=== PATIENT | male | born 1980 | race Caucasian/White ===

== ENCOUNTER 2018-03-18 16:16 | Observation (INO) ==
[2018-03-18 17:04] LABS: Baso # (Auto) 0.1 th/mm3 (0.0-0.2); Baso % (Auto) 0.9 % (0.0-2.0); Eos # (Auto) 0.6 th/mm3 (0.0-0.4); Eos % (Auto) 9.1 % (0.0-4.0); Hematocrit 43.3 % (39.0-51.0); Lymph # (Auto) 2.4 th/mm3 (1.0-4.8); Lymph % (Auto) 34.7 % (9.0-44.0); Mean Corpuscular HGB Conc 34.6 % (32.0-36.0); Mean Corpuscular Hemoglobin 33.6 pg (27.0-34.0); Mean Corpuscular Volume 97.1 fL (80.0-100.0); Mean Platelet Volume 10.6 fL (7.0-11.0); Mono # (Auto) 0.5 th/mm3 (0.0-0.9); Mono % (Auto) 6.9 % (0.0-8.0); Neut # (Auto) 3.3 th/mm3 (1.8-7.7); Neut % (Auto) 48.4 % (16.0-70.0); Platelet Count 192 th/mm3 (150-450); Red Blood Count 4.46 mil/mm3 (4.50-5.90); White Blood Count 6.9 th/mm3 (4.0-11.0)
--- NOTE | 2018-03-18 17:07 | ED ---
HPI General Chief Complaint: Extremity Injury, Lower Stated Complaint: Leg Injury Time Seen by Provider: 03/18/18 16:31 Source: patient Mode of arrival: EMS Limitations: no limitations History of Present Illness HPI Narrative: 37y male from [place] presents to the ED for evaluation of RLE pain after an injury that occurred just prior to arrival. Evac states he was jumping up to catch a football, landed, and had an immediate deformity with pain of the lower extremity. Patient's pain is 10/10 prior to morphine and decreased to 8/10 with a total of 10mg Morphine, administered by EVAC prior to arrival. Pt says the pain is localized to the lower mid leach without radiation of pain. No numbness or tingling. Patient denies chronic medical issues or medication use. Denies illicit drug use. Related Data Home Medications Medication Instructions Recorded Confirmed No Known Home Medications 03/18/18 03/18/18 Allergies Allergy/AdvReac Type Severity Reaction Status Date / Time No Known Allergies Allergy Unverified 03/18/18 16:31 Review of Systems Except as stated in HPI: all other systems reviewed are negative PMFSH Social History Social History Substance History: No History of Abuse Second Hand Smoke Exposure: Yes Smoking Status: Current every day smoker Tobacco Type: Cigarettes How Often Do You Have a Drink Containing Alcohol: 4 or more times a week Recent Travel in [facility] within the Last 8 Weeks: No Recent Out of Country Travel within the Last 8 Weeks: No Immunization History Tetanus Immunization: Unsure Hx Influenza Vaccine This Season: No Exam Narrative Exam Narrative: GENERAL: Well-developed, well-nourished in mild distress SKIN: Focused skin assessment warm/dry. HEAD: Atraumatic. Normocephalic. EYES: Pupils equal and round. No scleral icterus. No injection or drainage. ENT: No nasal bleeding or discharge. Mucous membranes pink and moist. NECK: Trachea midline. No JVD. CARDIOVASCULAR: Regular rate and rhythm. No murmur appreciated. RESPIRATORY: No accessory muscle use. Clear to auscultation. Breath sounds equal bilaterally. GASTROINTESTINAL: Abdomen soft, non-tender, nondistended. Hepatic and splenic margins not palpable. Hip/pelvis stable without TTP, B/L thighs without TTP, No TTP to proximal tibia. TTP to lower mid tibia, skin intact. Pt moves toes and has full sensation of leg, dorsalis pedic pulse bounding NEUROLOGICAL: Awake and alert. No obvious cranial nerve deficits. Motor grossly within normal limits. Normal speech. PSYCHIATRIC: Appropriate mood and affect; insight and judgment normal. Course Initial Documented Vital Signs Temperature 98.4 F 03/18/18 16:23 Pulse Rate 74 03/18/18 16:23 Respiratory Rate 18 03/18/18 16:23 Blood Pressure 152/87 H 03/18/18 16:23 Pulse Oximetry 99 03/18/18 16:23 Last Documented Vital Signs Temperature 98.8 F 03/18/18 22:18 Pulse Rate 71 03/18/18 22:18 Respiratory Rate 17 03/18/18 22:18 Blood Pressure 126/72 03/18/18 22:18 Pulse Oximetry 97 03/18/18 22:18 Medical Decision Making MDM Narrative Medical decision making narrative: 37y male presents to the ED with a lower extremity injury via EVAC. Labs and imaging ordered. Xray consistent with a tib/fib fracture. He is neurovascularly intact. I offered more pain control but pt declined, stating he would rather avoid excessive pain medications. I spoke with Dr. Harris who recommended posterior leg splint, cold machine, and NPO after midnight with plan for surgery tomorrow. Admitted to Dr. Harris. Placed order for pain medication PRN. Differential Diagnosis Differential Diagnosis: Leg fracture, contusion, ankle sprain, ankle fracture Lab Data Result diagrams: 03/18/18 16:30 03/18/18 16:30 Lab Results 03/18/18 03/18/18 03/18/18 Range/Units 16:30 16:30 16:30 WBC 6.9 (4.0-11.0) th/mm3 RBC 4.46 L (4.50-5.90) mil/mm3 Hgb 15.0 (13.0-17.0) gm/dL Hct 43.3 (39.0-51.0) % MCV 97.1 (80.0-100.0) fL MCH 33.6 (27.0-34.0) pg MCHC 34.6 (32.0-36.0) % RDW 13.0 (11.6-17.2) % Plt Count 192 (150-450) th/mm3 MPV 10.6 (7.0-11.0) fL Neut % (Auto) 48.4 (16.0-70.0) % Lymph % (Auto) 34.7 (9.0-44.0) % [place] % (Auto) 6.9 (0.0-8.0) % Eos % (Auto) 9.1 H (0.0-4.0) % Baso % (Auto) 0.9 (0.0-2.0) % Neut # (Auto) 3.3 (1.8-7.7) th/mm3 Lymph # (Auto) 2.4 (1.0-4.8) th/mm3 [place] # (Auto) 0.5 (0.0-0.9) th/mm3 Eos # (Auto) 0.6 H (0.0-0.4) th/mm3 Baso # (Auto) 0.1 (0.0-0.2) th/mm3 WBC Differential . Differential Comment Auto diff final PT 10.0 (9.8-11.6) sec INR 1.0 Ratio APTT 23.1 L (24.3-30.1) sec Sodium 140 (136-145) meq/L Potassium 3.7 (3.5-5.1) meq/L Chloride 106 (98-107) meq/L Carbon Dioxide 27.2 (21.0-32.0) meq/L Anion Gap 7 (5-15) meq/L BUN 12 (7-18) mg/dL Creatinine 1.07 (0.60-1.30) mg/dL Estimated GFR 77 L (>89) mL/min Random Glucose 94 (74-106) mg/dL Calcium 8.6 (8.5-10.1) mg/dL Total Bilirubin 0.4 (0.2-1.0) mg/dL AST 22 (15-37) U/L ALT 40 (12-78) U/L Alkaline Phosphatase 55 (45-117) U/L Total Protein 7.3 (6.4-8.2) g/dL Albumin 3.6 (3.4-5.0) g/dL Imaging Data Radiologist's impression: Ankle X-Ray 03/18/18 16:31 CONCLUSION: Distal tibia and fibular fractures. Tibia/Fibula X-Ray 03/18/18 16:31 CONCLUSION: Tibia and fibular fractures are noted. Discharge Plan Discharge Disposition Patient Disposition: 30 Still Patient Discharge Condition Condition: Stable Discharge Details Diagnosis: Fracture tibia/fibula Physicians Team ED Provider: Sean Landry ED Midlevel Provider: Kelly Liu Primary Care Provider: Primary Care Ruth Smalls Attending Provider: Ernie Harris Status ED Status: Left Department Discharge Information Discharge Date/Time: 03/18/18 22:05
--- NOTE | 2018-03-18 17:16 | XR ---
EXAM DATE: 03/18/2018 5:12 PM EDT AGE/SEX: 37 years / Male INDICATIONS: Right leg pain after falling while playing football today. CLINICAL DATA: This is the patient's initial encounter. Patient reports that signs and symptoms have been present for 1 day and indicates a pain score of 10/10. MEDICAL/SURGICAL HISTORY: . Smoker. None. COMPARISON: [facility] [place], TIBIA FIBULA RIGHT 2V, 03/18/2018. . FINDINGS: There is an oblique laterally displaced fracture of the distal tibial metaphysis identified, with com minuted fragments seen. In addition there is an oblique mildly displaced fracture of the distal fibul ar diaphysis. Bone density is normal. Ankle mortise is approximated. CONCLUSION: Distal tibia and fibular fractures. Electronically signed by: Yong Brown MD 03/18/2018 5:15 PM EDT
--- NOTE | 2018-03-18 17:17 | XR ---
EXAM DATE: 03/18/2018 5:13 PM EDT AGE/SEX: 37 years / Male INDICATIONS: Entire right leg pain after falling while playing football today. CLINICAL DATA: This is the patient's initial encounter. Patient reports that signs and symptoms have been present for 1 day and indicates a pain score of 10/10. MEDICAL/SURGICAL HISTORY: . Smoker. None. COMPARISON: [facility], ANKLE COMPLETE RIGHT MIN 3V, 03/18/2018. . FINDINGS: There is an oblique mildly displaced fracture of the proximal fibular metaphysis with anterior displa cement of the distal fibular fragment, as well as an oblique comminuted mildly displaced fracture of the distal fibular diaphysis, and a displaced distal tibial metaphyseal fracture, comminuted. CONCLUSION: Tibia and fibular fractures are noted. Electronically signed by: Yong Brown MD 03/18/2018 5:15 PM EDT
[2018-03-18 17:21] LABS: Albumin 3.6 g/dL (3.4-5.0); Anion Gap 7 meq/L (5-15); Aspartate Aminotransferase 22 U/L (15-37); Blood Urea Nitrogen 12 mg/dL (7-18); Calcium 8.6 mg/dL (8.5-10.1); Carbon Dioxide 27.2 meq/L (21.0-32.0); Chloride 106 meq/L (98-107); Glomerular Filtration Rate 77 mL/min (>89); Glucose,Random 94 mg/dL (74-106); Potassium 3.7 meq/L (3.5-5.1); Sodium 140 meq/L (136-145)
[2018-03-18 17:22] LABS: Alanine Aminotransferase 40 U/L (12-78)
[2018-03-18 17:24] LABS: Alkaline Phosphatase 55 U/L (45-117); Total Protein 7.3 g/dL (6.4-8.2)
[2018-03-18] MEDS ORDERED: Morphine Sulfate Inj 8 MG/ML Vial IV.PUSH ONE ×2 (17:43→18:13)
[2018-03-18] MEDS ORDERED: Morphine Sulfate Inj 8 MG/ML Vial ONE (17:47)
[2018-03-18 17:51] LABS: Activated Partial Thrombo Time 23.1 sec (24.3-30.1)
[2018-03-18] MEDS ORDERED: Morphine Inj 4 MG/ML Vial IV.PUSH ONE (19:00)
[2018-03-18] MEDS ORDERED: Morphine Inj 4 MG/ML Vial IV.PUSH PRN (20:48)
--- NOTE | 2018-03-19 08:04 | P.PNOP ---
Subjective Interval history: Injury while playing football on the beach. Patient is visiting from [facility]. No other associated injury <Josh Montemayor - Last Filed: 03/19/18 08:00> Physical Exam Vital signs: Vital Signs 03/18/18 16:23 03/18/18 16:26 03/18/18 18:00 Temperature 98.4 F 98.4 F Pulse Rate 74 74 Respiratory Rate 18 16 16 Blood Pressure 152/87 H 152/87 H Pulse Oximetry 99 100 03/18/18 22:18 03/19/18 04:00 Temperature 98.8 F 97.8 F Pulse Rate 71 64 Respiratory Rate 17 16 Blood Pressure 126/72 133/78 Pulse Oximetry 97 98 Intake & Output 03/18/18 03/19/18 03/19/18 18:59 06:59 18:59 Weight 230 kg 104.326 kg Other: Weight On Admission 104.326 kg Narrative: Right lower extremity: No pain with hip range of motion. Tenderness over proximal fibula. Short leg splint with posterior and stirrup intact with ice cuff. Intact sensation in all toes. Distally is able to move his toes appropriately. <Josh Montemayor - Last Filed: 03/19/18 08:00> Vital signs: Vital Signs 03/18/18 16:23 03/18/18 16:26 03/18/18 18:00 Temperature 98.4 F 98.4 F Pulse Rate 74 74 Respiratory Rate 18 16 16 Blood Pressure 152/87 H 152/87 H Pulse Oximetry 99 100 03/18/18 22:18 03/19/18 04:00 Temperature 98.8 F 97.8 F Pulse Rate 71 64 Respiratory Rate 17 16 Blood Pressure 126/72 133/78 Pulse Oximetry 97 98 Intake & Output 03/18/18 03/19/18 03/19/18 18:59 06:59 18:59 Weight 230 kg 104.326 kg Other: Weight On Admission 104.326 kg <Joce Owens - Last Filed: 03/19/18 09:40> Results - Labs CBC & Chem 7: 03/18/18 16:30 03/18/18 16:30 Laboratory Results - last 24 hr 03/18/18 03/18/18 03/18/18 16:30 16:30 16:30 WBC 6.9 RBC 4.46 L Hgb 15.0 Hct 43.3 MCV 97.1 MCH 33.6 MCHC 34.6 RDW 13.0 Plt Count 192 MPV 10.6 Neut % (Auto) 48.4 Lymph % (Auto) 34.7 [place] % (Auto) 6.9 Eos % (Auto) 9.1 H Baso % (Auto) 0.9 Neut # (Auto) 3.3 Lymph # (Auto) 2.4 [place] # (Auto) 0.5 Eos # (Auto) 0.6 H Baso # (Auto) 0.1 WBC Differential . Differential Comment Auto diff final PT 10.0 INR 1.0 APTT 23.1 L Sodium 140 Potassium 3.7 Chloride 106 Carbon Dioxide 27.2 Anion Gap 7 BUN 12 Creatinine 1.07 Estimated GFR 77 L Random Glucose 94 Calcium 8.6 Total Bilirubin 0.4 AST 22 ALT 40 Alkaline Phosphatase 55 Total Protein 7.3 Albumin 3.6 - Imaging Impressions Ankle X-Ray 03/18/18 16:31 CONCLUSION: Distal tibia and fibular fractures. Tibia/Fibula X-Ray 03/18/18 16:31 CONCLUSION: Tibia and fibular fractures are noted. <Josh Montemayor - Last Filed: 03/19/18 08:00> - Labs CBC & Chem 7: 03/18/18 16:30 03/18/18 16:30 Laboratory Results - last 24 hr 03/18/18 03/18/18 03/18/18 16:30 16:30 16:30 WBC 6.9 RBC 4.46 L Hgb 15.0 Hct 43.3 MCV 97.1 MCH 33.6 MCHC 34.6 RDW 13.0 Plt Count 192 MPV 10.6 Neut % (Auto) 48.4 Lymph % (Auto) 34.7 [place] % (Auto) 6.9 Eos % (Auto) 9.1 H Baso % (Auto) 0.9 Neut # (Auto) 3.3 Lymph # (Auto) 2.4 [place] # (Auto) 0.5 Eos # (Auto) 0.6 H Baso # (Auto) 0.1 WBC Differential . Differential Comment Auto diff final PT 10.0 INR 1.0 APTT 23.1 L Sodium 140 Potassium 3.7 Chloride 106 Carbon Dioxide 27.2 Anion Gap 7 BUN 12 Creatinine 1.07 Estimated GFR 77 L Random Glucose 94 Calcium 8.6 Total Bilirubin 0.4 AST 22 ALT 40 Alkaline Phosphatase 55 Total Protein 7.3 Albumin 3.6 - Imaging Impressions Ankle X-Ray 03/18/18 16:31 CONCLUSION: Distal tibia and fibular fractures. Tibia/Fibula X-Ray 03/18/18 16:31 CONCLUSION: Tibia and fibular fractures are noted. <Joce Owens - Last Filed: 03/19/18 09:40> Assessment and Plan - Assessment and Plan Right distal tibia and fibula fractures N.p.o. Surgery this morning for open reduction internal fixation versus external fixation. Swelling will determine course of action in surgery. Sign consents <Josh Montemayor - Last Filed: 03/19/18 08:00> - Assessment and Plan [employer] [employer] Prescription Drug Monitoring Database has been queried and verified prior to prescribing the controlled substance. Acute pain exception. This patient has normal, predicted, physiological, and time limited response to an adverse mechanical stimulus associated with surgery, trauma, or acute illness as described in my notes. There is a lack of alternative treatment options other than to include the prescribed narcotic treatment for this condition. <Joce Owens - Last Filed: 03/19/18 09:40>
[2018-03-19] MEDS ORDERED: Post-op Orders (for Pharmacy) OTHER STA (09:47)
[2018-03-19] MEDS ORDERED: Morphine Inj 4 MG/ML Vial IV.PUSH PRN (09:47)
--- NOTE | 2018-03-19 09:54 | P.OP ---
- Preoperative Diagnosis (1) Closed fracture of right distal tibia (2) Fracture tibia/fibula Date of procedure: 03/19/18 Procedure: Open reduction internal fixation right distal tibia fracture Anesthesia: GETA Surgeon: Waqar Rankin MD Authorization Specialist: ELDA Oleary PA-C The surgical procedure was assisted by my physician speech assistant. My P.A. presence was necessary throughout this case for the manipulation and positioning of the surgical extremity. My P.A. was assisting me throughout the duration of this procedure. The skill set of a physician speech assistant was medically necessary to complete this procedure. During the surgical case the surgical garment assembler was working at the back table and the physician speech assistant was directly assisting me. Operation and Findings: Implants used: Biomet Plan of activity: Nonweightbearing right leg Details of procedure: This patient was seen and evaluated preoperatively. He sustained fractures of the right distal tibia and fibula while playing at the beach with his family. He is here on vacation from [place]. Informed consent was obtained for open reduction and internal fixation of distal tibia fracture. Soft tissue was evaluated preoperatively and found to be suitable for surgery. Patient was brought to the operating placed on operating room table. Patient was given IV sedation and general anesthesia. Timeout procedure was performed, and IV antibiotics were given prior to procedure. The operative leg was now prepped with alcohol followed by Hibiclens and draped usual sterile fashion. A 3 inch incision was now made over the medial aspect of the ankle. Saphenous vein was protected. A full thickness flap was now elevated. The distal medial tibia was now exposed. Attention was now turned towards reduction. The metaphyseal fragments were reduced first. Traction was applied and fracture fragments were manipulated. There were multiple metaphyseal fragments. These were manipulated in excellent reduction was achieved. Fracture tenaculums were used to reduce fractures. Multiple K wires were used to hold provisional fixation. Fluoroscopy confirmed excellent alignment of fractures. A Biomet medial distal tibial plate was selected. Plate was placed percutaneously along the medial aspect of the distal tibia. Plate was provisionally held to bone with K wires. 2.7 cortical screws and 3.5 cortical screws were used to compress plate to bone. Multiple screws were placed into the shaft. Multiple 2.7 locking screws were placed into the distal segment. All screws were predrilled and premeasured for appropriate lengths. Final fluoroscopy revealed well aligned fracture with well-placed hardware. The wound was now thoroughly irrigated. Subcutaneous tissues closed with 3-0 Vicryl and skin was closed with 3-0 nylon. Sterile dressings were applied with Xeroform 4 x 4's soft roll and a well-padded splint.. Needle and sponge counts were correct. Patient was transferred to recovery room in stable condition.
[2018-03-19] MEDS: Ketorolac Inj 30 MG/ML (IVP) Vial IV.PUSH SCH ×2 (10:15→17:03)
[2018-03-19] MEDS ORDERED: fentaNYL Citrate Inj 100 MCG/2 ML Ampul ONE (10:25)
--- NOTE | 2018-03-19 10:32 | MB ---
cc: Waqar Thomas MD DATE: 03/19/2018 REASON FOR ADMISSION: Right distal tibia and fibula fractures. HISTORY OF PRESENT ILLNESS: Milo is a 37-year-old male who is visiting in [place] from [place]. He and his family have been staying in a condo in [place] but came up to [place] to visit friends. He was at the beach playing. He jumped to catch a football. He landed awkwardly on his right leg. He had immediate right leg pain and deformity. He denies dizziness, syncope or loss of consciousness. He presented to the Emergency Room, where x-rays revealed displaced right distal tibia and fibula shaft fractures. Pain is worse with movement and is improved with rest. ALLERGIES: NO KNOWN DRUG ALLERGIES. PAST MEDICAL HISTORY: None. MEDICATIONS: None. FAMILY HISTORY: Noncontributory. He denies any familial medical problems. SOCIAL HISTORY: The patient denies drug use. He drinks alcohol approximately 4 times a week. He does smoke cigarettes. REVIEW OF SYSTEMS: The patient denies fevers, chills, weight loss, headache, visual changes, hearing loss, chest pain, palpitations, shortness of breath, nausea or vomiting, urinary changes, diarrhea, bowel changes, neck pain, back pain, skin rashes, weakness or numbness of extremities, anxiety or depression. He complains of right leg pain. LABORATORY DATA: The patient has a white blood cell count of 6.9, hematocrit of 43.3, platelet count of 192. INR is 1.0. Potassium is 3.7. PHYSICAL EXAMINATION: GENERAL: The patient is a well-developed, well-nourished, 37-year-old male, who is in no acute distress. He is awake and alert. He is alert and oriented x 3. VITAL SIGNS: Temperature 97.8, pulse 64, respirations 16, blood pressure 133/78, O2 saturations 98% on room air. HEENT: Head: The patient is normocephalic. Pupils are equal. NECK: Soft, nontender. The trachea is in the midline. ABDOMEN: Soft, nontender, and nondistended. EXTREMITIES: Examination of bilateral upper extremities reveals no pain with shoulder, elbow or wrist motion. He has intact sensation in all fingers. He has good capillary refill fingers. Skin is intact. Radial pulses are palpable. Examination of left leg reveals no pain with hip, knee or ankle motion. Skin is intact. Dorsalis pedis pulse is palpable. Sensation is intact. Examination of right leg reveals no tenderness around his hip or knee. Calf and thigh compartments are soft. He has mild swelling of the ankle. He has pain with any ankle motion. Skin is intact. Dorsalis pedis pulse is palpable. Sensation is intact to the right foot. IMAGING STUDIES: X-rays of the right ankle were reviewed. X-rays reveal displaced fractures of the right distal tibia and fibula shaft. IMPRESSION: 1. Tobacco dependence. 2. Right distal tibia and fibula fractures. PLAN: Treatment options were discussed with the patient. At this point, I would recommend open reduction and internal fixation of right distal tibia fracture. Risk of surgery included bleeding, infection; injuries to arteries, nerves or blood vessels; nonunion, malunion, painful hardware, wound complications, as well as medical complications including blood clot, stroke, heart attack and . All questions were answered. I will plan on surgery today. If the patient does have a significant increase of swelling between now and surgery, he may need 2 surgeries. If swelling has increased, he may need temporary external fixation prior to definitive fixation with open reduction and internal fixation. Postoperatively, I will consult physical therapy. He will be placed on calcium and vitamin D. I also discussed with him the need to stop smoking. A mid-level provider in my office, nurse practitioner or PA, may see this patient on a follow-up basis and continue to implement the objective of this plan including: Starting or adjusting medications, injections of muscle, tendon, bursa or joints, cast application, orthotic or brace application, physical therapy, further radiographic studies including x-ray, MRI, CT, ultrasounds or bone scan, vascular studies, neurologic studies, or other specialist consultations, and proceeding with surgical management as appropriate. MD ALIYAH Costa/CYDNEY , 10:11 AM , 10:21 AM
[2018-03-19] MEDS ORDERED: *morphine SULFATE 10 MG/ML PERIprocedure ONLY ONE (10:50)
[2018-03-19] MEDS ORDERED: Ketorolac Inj 30 MG/ML (IVP) Vial IV.PUSH ONE (12:00)
[2018-03-19] MEDS ORDERED: Lidocaine PF 1% Inj 5 ML Syringe INFILTRATN ONE (12:00)
--- NOTE | 2018-03-19 12:01 | XR ---
EXAM DATE: 03/19/2018 10:10 AM EDT AGE/SEX: 37 years / Male INDICATIONS: Post-op ORIF distal tibia. CLINICAL DATA: This is the patient's subsequent encounter. Patient reports that signs and symptoms h ave been present for 2 days and indicates a pain score of Nonresponsive. MEDICAL/SURGICAL HISTORY: Non-responsive. Non-responsive. COMPARISON: No prior exams available for comparison. FINDINGS: 4 spot intraoperative fluoroscopic views of the lower leg demonstrate medial plate and screw fixation of the distal tibia across the oblique distal tibial fracture, and a comminuted oblique fracture thr ough the distal shaft of the fibula. CONCLUSION: Postoperative changes. Electronically signed by: Yong Brown MD 03/19/2018 10:15 AM EDT
[2018-03-19] MEDS: Calcium/Vitamin D 250/125 MG Tablet PO SCH ×2 (16:26→17:03)
[2018-03-19] MEDS: ceFAZolin 2 GM/NS 100 ML IV; Q8H IV.SIG SCH ×2 (16:49)
[2018-03-19] MEDS ORDERED: ceFAZolin 2 GM Premix Inj 2 GM/50 ML PIGGYBACK IV.SIG SCH (17:00)
--- NOTE | 2018-03-19 17:12 | ECG ---
Date Performed: 03/19/2018 Time Performed: 04:03:23 PTAGE: 37 years EKG: Sinus rhythm NORMAL ECG NO PREVIOUS TRACING DOCTOR: Silvia Lewis Interpretating Date/Time 03/19/2018 17:10:44
[2018-03-19] MEDS: Senna/Docusate Sodium 8.6/50 MG Tablet PO SCH (22:17)
[2018-03-20] MEDS: Ketorolac Inj 30 MG/ML (IVP) Vial IV.PUSH SCH (01:58)
[2018-03-20] MEDS: ceFAZolin 2 GM/NS 100 ML IV; Q8H IV.SIG SCH ×6 (01:59→17:00)
--- NOTE | 2018-03-20 06:53 | P.PNOP ---
Subjective Interval history: POD 1 s/p ORIF right distal tibia doing well. pain controlled. resting comfortably. has not been out of bed yet Physical Exam Vital signs: Vital Signs 03/19/18 10:15 03/19/18 10:30 03/19/18 10:45 Temperature 97.9 F Pulse Rate 80 74 74 Respiratory Rate 16 16 16 Blood Pressure 166/92 H 136/84 136/79 Pulse Oximetry 95 96 98 03/19/18 11:00 03/19/18 11:30 03/19/18 12:00 Temperature 97.6 F Pulse Rate 70 76 69 Respiratory Rate 16 16 20 Blood Pressure 133/66 130/71 122/61 Pulse Oximetry 98 99 94 L 03/19/18 16:00 03/19/18 18:14 03/19/18 20:12 Temperature 97.8 F 97.3 F L Pulse Rate 64 77 Respiratory Rate 19 16 18 Blood Pressure 120/80 125/59 L Pulse Oximetry 97 98 03/19/18 23:06 03/20/18 04:32 Temperature 98.7 F 97.4 F L Pulse Rate 68 60 Respiratory Rate 18 18 Blood Pressure 129/60 121/72 Pulse Oximetry 97 96 Intake & Output 03/19/18 03/19/18 03/20/18 06:59 18:59 06:59 Intake Total 2380 / 2380 460 / 460 Output Total 440 / 440 Balance 1940 / 1940 460 / 460 Weight 104.326 kg Intake: IV 1100 / 1100 100 / 100 LR 1000 mL Inj 1,000 ML @ 80 1000 / 1000 mls/hr IV.CONT .[id number] LUIS Rx# :[id number] Ancef Inj 2,000 MG In NS Inj 80 100 / 100 100 / 100 ML @ 200 mls/hr IV.SIG Q8H LUIS Rx#:[id number] Oral 480 / 480 360 / 360 Anesthesia Amount 800 / 800 Output: Urine 400 / 400 Estimated Blood Loss 40 / 40 Other: # Voids 2 Date of Last Bowel Movement 03/18/18 # Bowel Movements 0 0 Weight On Admission 104.326 kg Narrative: RLE: dressings clean and dry. intact. +splint. NVI Results - Labs CBC & Chem 7: 03/18/18 16:30 03/18/18 16:30 - Imaging Impressions Ankle X-Ray 08/01/18 00:00 CONCLUSION: Postoperative changes. Assessment and Plan - Assessment and Plan 1) Right Distal Tibia/Fibula Fxs s/p ORIF - POD 1 -NWB -maintain splint at all times -elevate -keep clean and dry -plan for DC home today if does well with therapy. patient planning on travelling back to [place] in 10 days. -needs to get a hold of records dept to obtain records for stay so that can take with them to [place] -f/u with orthopedics at home in 2 weeks [employer] Prescription Drug Monitoring Database has been queried and verified prior to prescribing the controlled substance. Acute pain exception. This patient has normal, predicted, physiological, and time limited response to an adverse mechanical stimulus associated with surgery, trauma, or acute illness as described in my notes. There is a lack of alternative treatment options other than to include the prescribed narcotic treatment for this condition.
--- NOTE | 2018-03-20 07:00 | P.DS ---
Date of admission: 03/18/18 20:45 Primary care physician: No Primary Care Physician Attending physician on discharge: Waqar Rankin Anticipated date of discharge: 03/20/18 Brief History from admission: Patient admitted after suffering [place] the [place]. Said he fell and had immediate right ankle pain. He is visiting from [place]. He is with his . They are planning to return back to [place] in 10 days. DS: Diagnosis - Discharge Diagnosis (1) Closed fracture of right distal tibia Status: Acute Diagnosis: Principal DS: Medications - Discharge Medications Prescriptions: hydrocodone-acetaminophen [Warren] 1 tab PO Q4H #40 tab rivaroxaban [Xarelto] 10 mg PO DAILY #14 tab DS: Summary Hospital Course: Patient was taken to the operating room for an open reduction internal fixation of the right distal tibia and fibula on 03/19/2018. He tolerated the procedure well. On postop day 1 he was resting comfortably in his bed in no acute distress. He states that his pain has been well controlled. He has been elevating his foot. He has not yet been out of bed with physical therapy. He will work with therapy today and being ambulatory with a walker. He will be planned for discharge home later today. He will be returning but can in 10 days. I will give him a prescription for pain medication as well as a blood thinner. It is imperative that he use a blood thinner for the next 2 weeks especially while flying. He will need follow-up with orthopedics at home in 2 weeks. He will remain strictly nonweightbearing on the right leg for 3 months. He will let us know if he has any issues or concerns - Time Spent with Patient Total time spent providing and/or coordinating discharge services: Less than 30 minutes - Quality: VTE Deep Vein Thrombosis/Pulmonary Embolism Present on Admission: No Exam Vital signs: Vital Signs 03/19/18 10:15 03/19/18 10:30 03/19/18 10:45 Temperature 97.9 F Pulse Rate 80 74 74 Respiratory Rate 16 16 16 Blood Pressure 166/92 H 136/84 136/79 Pulse Oximetry 95 96 98 03/19/18 11:00 03/19/18 11:30 03/19/18 12:00 Temperature 97.6 F Pulse Rate 70 76 69 Respiratory Rate 16 16 20 Blood Pressure 133/66 130/71 122/61 Pulse Oximetry 98 99 94 L 03/19/18 16:00 03/19/18 18:14 03/19/18 20:12 Temperature 97.8 F 97.3 F L Pulse Rate 64 77 Respiratory Rate 19 16 18 Blood Pressure 120/80 125/59 L Pulse Oximetry 97 98 03/19/18 23:06 03/20/18 04:32 Temperature 98.7 F 97.4 F L Pulse Rate 68 60 Respiratory Rate 18 18 Blood Pressure 129/60 121/72 Pulse Oximetry 97 96 Intake & Output 03/19/18 03/19/18 03/20/18 06:59 18:59 06:59 Intake Total 2380 / 2380 460 / 460 Output Total 440 / 440 Balance 1940 / 1940 460 / 460 Weight 104.326 kg Intake: IV 1100 / 1100 100 / 100 LR 1000 mL Inj 1,000 ML @ 80 1000 / 1000 mls/hr IV.CONT .[id number] LUIS Rx# :[id number] Ancef Inj 2,000 MG In NS Inj 80 100 / 100 100 / 100 ML @ 200 mls/hr IV.SIG Q8H LUIS Rx#:[id number] Oral 480 / 480 360 / 360 Anesthesia Amount 800 / 800 Output: Urine 400 / 400 Estimated Blood Loss 40 / 40 Other: # Voids 2 Date of Last Bowel Movement 03/18/18 # Bowel Movements 0 0 Weight On Admission 104.326 kg Narrative: RLE: dressings clean and dry. intact. +splint. NVI Results Procedures completed during hospitalization: ORIF of right distal tibia - Impressions ITS Impressions Tibia/Fibula X-Ray 03/18/18 16:31 CONCLUSION: Tibia and fibular fractures are noted. Ankle X-Ray 03/19/18 00:00 CONCLUSION: Postoperative changes. Discharge Plan - Discharge Disposition Patient Disposition: Discharge Home - Discharge Condition Condition: Stable - Discharge Order Discharge Orders: Discharge Order (Routine); Ordered 03/20/18 Ordered By: Joce Owens - Discharge Details Anticipated Discharge Date: 03/20/18 - Physicians Team Primary Care Provider: Primary Care Slim,Ruth Attending Provider: Ernie Harris Other Providers: Waqar Rankin MD
[2018-03-20] MEDS: Senna/Docusate Sodium 8.6/50 MG Tablet PO SCH (09:00)
[2018-03-20] MEDS: Calcium/Vitamin D 250/125 MG Tablet PO SCH ×3 (09:00→18:19)
[2018-03-20 12:31] VITALS: RESP 15; TEMP 98
[2018-03-20 16:25] VITALS: BP 140/73; PULSE 70; O2SAT 97
== END 2018-03-20 18:15 | disposition home or self-care (01) ==
LOC: NEDA 16:16 → NEPC 16:16 → N06 16:16 → NEPGCP 21:56 → N06 03-19 07:49
PROVIDERS: ADMIT Orthopaedic Surgery; ATTEND Orthopaedic Surgery
PROC: ORIFANK (2018-03-19 08:43)
DX: S82.301A Unspecified fracture of lower end of right tibia, initial encounter for closed fracture; S82.831A Other fracture of upper and lower end of right fibula, initial encounter for closed fracture; F17.210 Nicotine dependence, cigarettes, uncomplicated; W19.XXXA Unspecified fall, initial encounter